=== PATIENT | female | born 1950 | race Caucasian/White ===

== ENCOUNTER 2021-11-28 20:32 | Emergency (ER) | payer SELFPAY ==
[2021-11-28 21:16] LABS: ANION GAP 12.2 mEq/L (7-13); CHLORIDE,CL 102 mmol/L (98-107); SODIUM,NA 133 mmol/L (136-145)
[2021-11-28] MEDS ORDERED: Morphine 2 MG/ML SYRINGE IVPUSH ONE (21:42)
[2021-11-28] MEDS ORDERED: Ondansetron 4 MG/2 ML SDV IVPUSH ONE (21:44)
[2021-11-28] MEDS ORDERED: Ketorolac 30 MG/ML SDV IVPUSH ONE (22:41)
== END 2021-11-29 03:15 | disposition home or self-care (01) ==
LOC: DL.ED 20:32
DX: S80.212A Abrasion, left knee, initial encounter (principal); S80.211A Abrasion, right knee, initial encounter; S40.811A Abrasion of right upper arm, initial encounter; S90.812A Abrasion, left foot, initial encounter; R55 Syncope and collapse; W18.30XA Fall on same level, unspecified, initial encounter
CPT/HCPCS: 36415; 70450; 72125; 73060; 73090; 73501; 73560; 80053; 80307; 81001; 83605; 84484; 85025; 85651; 86140; 93005; 96374; 96375; 99285; J2270; J2405

== ENCOUNTER 2022-10-30 15:42 | Emergency (ER) | payer MEDICAID, MEDICARE ==
[2022-10-30] MEDS ORDERED: Sodium Chloride 0.9% 1,000 ML IV ONE (16:29)
[2022-10-30 16:41] LABS: ANION GAP 15.9 mEq/L (7-13); CHLORIDE,CL 101 mmol/L (98-107); SODIUM,NA 138 mmol/L (136-145)
[2022-10-30 16:44] LABS: ESTIMATED GFR 67 mL/min (>=60)
[2022-10-30 16:53] LABS: AMPHETAMINES,URINE NEGATIVE (NEGATIVE); BARBITURATES,URINE NEGATIVE (NEGATIVE); BENZODIAZEPINE,URINE NEGATIVE (NEGATIVE); MDMA (ECSTASY), URINE NEGATIVE (NEGATIVE); METHADONE,URINE NEGATIVE (NEGATIVE); METHAMPHETAMINES,URINE NEGATIVE (NEGATIVE); OPIATES,URINE NEGATIVE (NEGATIVE); OXYCODONE,URINE NEGATIVE (NEGATIVE); PHENCYCLIDINE,URINE NEGATIVE (NEGATIVE); TCA,URINE NEGATIVE (NEGATIVE)
[2022-10-30 17:11] LABS: CORONAVIRUS COVID-19 NAA NEGATIVE (NEGATIVE); RESPIRATORY SYNCYTIAL VIR NAA NEGATIVE (NEGATIVE)
[2022-10-30] MEDS ORDERED: Lactated Ringers 1,000 ML IV ONE (17:35)
== END 2022-10-30 20:20 | disposition home or self-care (01) ==
LOC: DL.ED 15:42
DX: E86.0 Dehydration (principal); I48.91 Unspecified atrial fibrillation; F10.920 Alcohol use, unspecified with intoxication, uncomplicated; Z79.82 Long term (current) use of aspirin; Z20.822 Contact with and (suspected) exposure to COVID-19
CPT/HCPCS: 0241U; 36415; 70450; 72125; 80053; 80305; 80307; 81001; 82140; 82550; 83605; 83735; 84443; 84484; 85025; 86140; 96360; 96361; 99284; 99285; J7030; J7120

== ENCOUNTER 2023-02-28 22:36 | Emergency (ER) | payer MEDICARE ==
[2023-02-28] MEDS: Sodium Chloride 0.9% 10 ML Syringe FLUSH PRN (22:55)
[2023-02-28 23:15] LABS: BASOPHILS PERCENT AUTO 0.4 % (0.0-1.0); EOSINOPHILS PERCENT AUTO 2.3 % (1.0-3.0); HEMATOCRIT 45.3 % (37.0-47.0); HEMOGLOBIN 15.3 g/dL (12.0-16.0); LYMPHOCYTES PERCENT AUTO 42.9 % (20.5-50.1); MEAN CORPUSCULAR HEMOGLOBIN 33.3 pg (27.0-34.0); MEAN CORPUSCULAR HGB CONC 33.8 g/dL (33.0-35.0); MEAN CORPUSCULAR VOLUME 98.5 fL (80-100); MONOCYTES PERCENT AUTO 8.8 % (2-8); NEUTROPHILS PERCENT AUTO 45.6 % (42.2-75.2); PLATELET COUNT,PLT 236 10^3/uL (150-450); WHITE BLOOD CELL COUNT,WBC 7.7 10^3/uL (5.0-10.0)
[2023-02-28 23:37] LABS: ALBUMIN 3.5 g/dL (3.4-5.0); ANION GAP 14.8 mEq/L (7-13); BLOOD UREA NITROGEN,BUN 21 mg/dL (7-18); BUN/CREATININE RATIO 23.6 (No establ ref range); CALCIUM 8.7 mg/dL (8.5-10.1); CARBON DIOXIDE,CO2 27 mmol/L (21-32); CHLORIDE,CL 100 mmol/L (98-107); CREATININE 0.89 mg/dL (0.55-1.02); GLUCOSE RANDOM 136 mg/dL (70-99); POTASSIUM,K 3.8 mmol/L (3.5-5.1); PROTEIN TOTAL,TP 7.4 g/dL (6.4-8.2); SODIUM,NA 138 mmol/L (136-145)
[2023-02-28 23:38] LABS: A/G RATIO 0.9; ALANINE AMINOTRANSFERASE,ALT 34 U/L (14-59); ALKALINE PHOSPHATASE 98 U/L (46-116); ASPARTATE AMNIOTRANSFERASE,AST 23 U/L (15-37); BILIRUBIN TOTAL 0.4 mg/dL (0.2-1.0); C-REACTIVE PROTEIN 2.3 mg/dL (0.0-0.9); ETHANOL BLOOD MEDICAL 243 mg/dL (0); MAGNESIUM 2.2 mg/dL (1.8-2.4)
[2023-02-28 23:56] LABS: ESTIMATED GFR 69 mL/min (>=60)
[2023-02-28 23:58] LABS: LACTIC ACID 2.8 mmol/L (0.4-2.0)
[2023-03-01] MEDS ORDERED: Sodium Chloride 0.9% 1,000 ML IV ONE
[2023-03-01] MEDS ORDERED: Sodium Chloride 0.9% 10 ML Syringe FLUSH PRN
[2023-03-01] MEDS ORDERED: WATER IV ONE ×2
[2023-03-01] MEDS ORDERED: DEXTROSE 5% IV ONE ×2
[2023-03-01] MEDS ORDERED: VANCOMYCIN IV ONE ×2
[2023-03-01] MEDS ORDERED: cefTRIAXone 2 GM Vial IVPUSH ONE (00:03)
[2023-03-01] MEDS: Sodium Chloride 0.9% 10 ML Syringe FLUSH PRN (00:29)
[2023-03-01 01:12] LABS: LACTIC ACID 2.5 mmol/L (0.4-2.0)
[2023-03-01 01:31] LABS: APPEARANCE,URINE SLIGHTLY CLOUDY (CLEAR); BILIRUBIN,URINE NEGATIVE (NEGATIVE); COLOR,URINE YELLOW (YELLOW); GLUCOSE,URINE NEGATIVE (NEGATIVE); KETONES,URINE NEGATIVE (NEGATIVE); LEUKOCYTE ESTERASE,URINE NEGATIVE (NEGATIVE); NITRITE,URINE NEGATIVE (NEGATIVE); OCCULT BLOOD,URINE SMALL (NEGATIVE); PROTEIN,URINE NEGATIVE (NEGATIVE); UROBILINOGEN,URINE 0.2 mg/dL (0.2-1.0)
[2023-03-01 01:41] LABS: BACTERIA,URINE MODERATE /HPF (0-FEW/HPF); EPITHELIAL CELLS,URINE MODERATE /HPF (NOT SEEN); WBC,URINE 0-5 /HPF (0-5/HPF)
[2023-03-01] MEDS ORDERED: Sodium Chloride 0.9% 1,000 ML IV SCH (01:51)
== END 2023-03-01 03:45 ==
LOC: DL.ED 22:36
DX: G93.41 Metabolic encephalopathy (principal); L03.116 Cellulitis of left lower limb; B87.0 Cutaneous myiasis; F10.120 Alcohol abuse with intoxication, uncomplicated; Y90.8 Blood alcohol level of 240 mg/100 ml or more; I87.8 Other specified disorders of veins; I48.91 Unspecified atrial fibrillation; I50.9 Heart failure, unspecified; Z79.899 Other long term (current) drug therapy; Z79.82 Long term (current) use of aspirin
CPT/HCPCS: 36415; 80053; 80307; 81001; 82550; 83605; 83735; 84145; 85025; 86140; 87040; 96361; 96365; 96366; 96375; 99285; J0696; J3370; J7030; J7060; 99284; J3490

== ENCOUNTER 2023-05-18 14:19 | Emergency (ER) | payer MEDICARE ==
[2023-05-18 17:28] LABS: BASOPHILS PERCENT AUTO 0.2 % (0.0-1.0); EOSINOPHILS PERCENT AUTO 0.6 % (1.0-3.0); HEMATOCRIT 48.5 % (37.0-47.0); HEMOGLOBIN 16.2 g/dL (12.0-16.0); LYMPHOCYTES PERCENT AUTO 22.6 % (20.5-50.1); MEAN CORPUSCULAR HEMOGLOBIN 31.6 pg (27.0-34.0); MEAN CORPUSCULAR HGB CONC 33.4 g/dL (33.0-35.0); MEAN CORPUSCULAR VOLUME 94.7 fL (80-100); MONOCYTES PERCENT AUTO 13.8 % (2-8); NEUTROPHILS PERCENT AUTO 62.8 % (42.2-75.2); PLATELET COUNT,PLT 253 10^3/uL (150-450); RED BLOOD CELL COUNT 5.12 10^6/uL (4.2-5.4); WHITE BLOOD CELL COUNT,WBC 11.8 10^3/uL (5.0-10.0)
[2023-05-18 17:51] LABS: ALANINE AMINOTRANSFERASE,ALT 29 U/L (14-59); ALBUMIN 3.3 g/dL (3.4-5.0); ALKALINE PHOSPHATASE 100 U/L (46-116); ANION GAP 14.7 mEq/L (7-13); ASPARTATE AMNIOTRANSFERASE,AST 30 U/L (15-37); BILIRUBIN TOTAL 2.1 mg/dL (0.2-1.0); BLOOD UREA NITROGEN,BUN 21 mg/dL (7-18); BUN/CREATININE RATIO 24.1 (No establ ref range); CALCIUM 9.3 mg/dL (8.5-10.1); CARBON DIOXIDE,CO2 29 mmol/L (21-32); CHLORIDE,CL 94 mmol/L (98-107); CREATININE 0.87 mg/dL (0.55-1.02); GLUCOSE RANDOM 123 mg/dL (70-99); POTASSIUM,K 4.7 mmol/L (3.5-5.1); PROTEIN TOTAL,TP 8.1 g/dL (6.4-8.2); SODIUM,NA 133 mmol/L (136-145)
[2023-05-18 17:54] LABS: LACTIC ACID 1.7 mmol/L (0.4-2.0)
[2023-05-18 17:55] LABS: A/G RATIO 0.69; ESTIMATED GFR 71 mL/min (>=60)
[2023-05-18 17:56] LABS: C-REACTIVE PROTEIN > 36.0 mg/dL (0.0-0.9)
[2023-05-18] MEDS: Sodium Chloride 0.9% 10 ML Syringe FLUSH PRN ×2 (18:10→19:46)
[2023-05-18] MEDS ORDERED: Sodium Chloride 0.9% 1,000 ML IV ONE (19:43)
== END 2023-05-18 21:10 ==
LOC: DL.ED 14:19
DX: L03.116 Cellulitis of left lower limb (principal); B87.9 Myiasis, unspecified; I48.91 Unspecified atrial fibrillation; Z79.82 Long term (current) use of aspirin
CPT/HCPCS: 36415; 80053; 83605; 84145; 85025; 86140; 87040; 87070; 87077; 87186; 96365; 96366; 99285; 99285-25; J3370; J3490; J7030; J7040

== ENCOUNTER 2024-05-10 15:35 | Inpatient (IN) | payer MEDICARE ==
[2024-05-10] MEDS ORDERED: Sodium Chloride 0.9% 10 ML Syringe FLUSH PRN ×2 (15:52)
[2024-05-10 16:04] LABS: BASOPHILS PERCENT AUTO 0.1 % (0.0-1.0); EOSINOPHILS PERCENT AUTO 0.1 % (1.0-3.0); HEMATOCRIT 38.3 % (37.0-47.0); LYMPHOCYTES PERCENT AUTO 3.8 % (20.5-50.1); MEAN CORPUSCULAR HEMOGLOBIN 30.4 pg (27.0-34.0); MEAN CORPUSCULAR HGB CONC 31.3 g/dL (33.0-35.0); MONOCYTES PERCENT AUTO 3.5 % (2-8); NEUTROPHILS PERCENT AUTO 92.5 % (42.2-75.2); PLATELET COUNT,PLT 242 10^3/uL (150-450); RED BLOOD CELL COUNT 3.95 10^6/uL (4.2-5.4); WHITE BLOOD CELL COUNT,WBC 16.9 10^3/uL (5.0-10.0)
[2024-05-10] MEDS: Metoprolol Tartrate 5 MG/5 ML SDV IVPUSH ONE (16:04)
[2024-05-10 16:13] LABS: INR 1.2 (0.9-1.2); PROTHROMBIN TIME 12.6 SEC (9.0-12.0)
[2024-05-10 16:20] LABS: ALBUMIN 2.3 g/dL (3.4-5.0); ANION GAP 12.3 mEq/L (7-13); BILIRUBIN TOTAL 1.1 mg/dL (0.2-1.0); BUN/CREATININE RATIO 14.9 (No establ ref range); CALCIUM 8.7 mg/dL (8.5-10.1); CREATININE 1.68 mg/dL (0.55-1.02); EST CRCL DRUG DOSING (CG) 26.14 mL/min; POTASSIUM,K 3.3 mmol/L (3.5-5.1)
[2024-05-10 16:34] LABS: A/G RATIO 0.49
[2024-05-10] MEDS: Diltiazem 125 MG in Sodium Chloride 0.9% 100 ML IV SCH ×2 (16:35→21:15)
[2024-05-10] MEDS: Ondansetron 4 MG/2 ML SDV IVPUSH ONE (17:00)
[2024-05-10] MEDS: Metoprolol Succinate 25 MG Tab.ER PO ONE (17:06)
[2024-05-10] MEDS: Diltiazem 25 MG/5 ML SDV IVPUSH ONE (17:23)
[2024-05-10] MEDS: Furosemide 20 MG/2 ML VIAL IVPUSH ONE (18:33)
[2024-05-10] MEDS ORDERED: Docusate Sodium 100 MG Cap PO PRN (20:26)
[2024-05-10] MEDS: Aspirin 325 MG Tab.EC PO SCH (21:54)
[2024-05-11] MEDS: oxyCODONE 5 MG Tab PO PRN (00:05)
[2024-05-11 06:19] LABS: HEMATOCRIT 35.2 % (37.0-47.0); MEAN CORPUSCULAR HEMOGLOBIN 30.6 pg (27.0-34.0); MEAN CORPUSCULAR HGB CONC 31.3 g/dL (33.0-35.0); MEAN CORPUSCULAR VOLUME 97.8 fL (80-100); PLATELET COUNT,PLT 235 10^3/uL (150-450); WHITE BLOOD CELL COUNT,WBC 19.9 10^3/uL (5.0-10.0)
[2024-05-11 06:25] LABS: BASOPHILS PERCENT AUTO 0.1 % (0.0-1.0); EOSINOPHILS PERCENT AUTO 0.3 % (1.0-3.0); LYMPHOCYTES PERCENT AUTO 6.6 % (20.5-50.1); MONOCYTES PERCENT AUTO 4.8 % (2-8); NEUTROPHILS PERCENT AUTO 88.2 % (42.2-75.2)
[2024-05-11 06:34] LABS: ANION GAP 11.6 mEq/L (7-13); CALCIUM 8.3 mg/dL (8.5-10.1); CREATININE 1.5 mg/dL (0.55-1.02); EST CRCL DRUG DOSING (CG) 29.27 mL/min; POTASSIUM,K 3.6 mmol/L (3.5-5.1)
[2024-05-11 06:45] LABS: LYMPHOCYTES PERCENT MAN 5 % (20-50); MONOCYTES PERCENT MAN 4 % (2-8); SEG NEUTROPHILS PERCENT MAN 91 % (42-75)
[2024-05-11] MEDS: Diltiazem 120 MG Cap.CD PO SCH (09:13)
[2024-05-11] MEDS: Ondansetron 4 MG Tab.DIS PO PRN (12:46)
[2024-05-11] MEDS: VANCOmycin 1.5 GM/300 ML 1.5 GM in Premix Bag 1 BAG IV ONE (14:06)
== END 2024-05-11 13:18 | DRG 309 ==
LOC: DL.ED 15:35 → DL.MS 18:35 → UNDOADMIN 18:35 → DL.MS 18:39
PROVIDERS: ADMIT Internal Medicine; ATTEND Internal Medicine
DX: I48.91 Unspecified atrial fibrillation (principal); L03.115 Cellulitis of right lower limb; Z91.199 Patient's noncompliance with other medical treatment and regimen due to unspecified reason; L97.802 Non-pressure chronic ulcer of other part of unspecified lower leg with fat layer exposed; L03.116 Cellulitis of left lower limb; Z66 Do not resuscitate; I50.9 Heart failure, unspecified; M19.90 Unspecified osteoarthritis, unspecified site; I95.9 Hypotension, unspecified; Z88.0 Allergy status to penicillin; Z79.2 Long term (current) use of antibiotics; Z79.82 Long term (current) use of aspirin; Z79.899 Other long term (current) drug therapy; Z79.84 Long term (current) use of oral hypoglycemic drugs; Z90.89 Acquired absence of other organs; Z91.148 Patient's other noncompliance with medication regimen for other reason
CPT/HCPCS: 36415; 51702; 71045; 80053; 83880; 84484; 85025; 85610; 93005; 96365; 96366; 96375; 99285; J1940; J2405; J3490 ×3; 80048; 93010; 99223; 99239; A9270-GY

== ENCOUNTER 2025-05-31 10:28 | Emergency (ER) | payer MEDICARE ==
[2025-05-31] MEDS ORDERED: Sodium Chloride 0.9% 10 ML Syringe FLUSH PRN (11:14)
[2025-05-31 11:30] LABS: PLATELET COUNT,PLT 294 10^3/uL (150-450); RED BLOOD CELL COUNT 4.01 10^6/uL (4.2-5.4); WHITE BLOOD CELL COUNT,WBC 14.7 10^3/uL (5.0-10.0)
[2025-05-31 11:32] LABS: BASOPHILS PERCENT AUTO 0.0 % (0.0-1.0); EOSINOPHILS PERCENT AUTO 0.4 % (1.0-3.0); LYMPHOCYTES PERCENT AUTO 2.9 % (20.5-50.1); MONOCYTES PERCENT AUTO 0.3 % (2-8); NEUTROPHILS PERCENT AUTO 96.4 % (42.2-75.2)
[2025-05-31 11:44] LABS: INR 1.1 (0.9-1.2); PTT,PARTIAL THROMBOPLSTIN TIME 27.2 SEC (22.0-34.0)
[2025-05-31 11:55] LABS: LACTIC ACID 6.6 mmol/L (0.4-2.0)
[2025-05-31 12:00] LABS: ALANINE AMINOTRANSFERASE,ALT 51 U/L (14-59); ASPARTATE AMNIOTRANSFERASE,AST 80 U/L (15-37); BILIRUBIN TOTAL 1.3 mg/dL (0.2-1.0); BLOOD UREA NITROGEN,BUN 61 mg/dL (7-18); CARBON DIOXIDE,CO2 22 mmol/L (21-32); CHLORIDE,CL 97 mmol/L (98-107); CREATININE 2.83 mg/dL (0.55-1.02); GLUCOSE RANDOM 114 mg/dL (70-99); POTASSIUM,K 4.7 mmol/L (3.5-5.1); PROTEIN TOTAL,TP 7.0 g/dL (6.4-8.2); SODIUM,NA 135 mmol/L (136-145); TSH ULTRASENSITIVE 3.03 uIU/mL (0.36-3.74)
[2025-05-31 12:03] LABS: A/G RATIO 0.27; ESTIMATED GFR 17 mL/min (>=60)
[2025-05-31 12:04] LABS: CREATINE KINASE,CK 1187 U/L (16-191); ETHANOL BLOOD MEDICAL < 3 mg/dL (0)
[2025-05-31 12:31] LABS: APPEARANCE,URINE SLIGHTLY CLOUDY (CLEAR); GLUCOSE,URINE NEGATIVE (NEGATIVE); OCCULT BLOOD,URINE MODERATE (NEGATIVE)
[2025-05-31 12:32] LABS: EPITHELIAL CELLS,URINE FEW /HPF (NOT SEEN)
[2025-05-31 12:35] LABS: BAND PERCENT MAN 8 %; EOSINOPHILS PERCENT MAN 1 % (1-3); LYMPHOCYTES % ATYPICAL MANUAL 1 %; LYMPHOCYTES PERCENT MAN 3 % (20-50); SEG NEUTROPHILS PERCENT MAN 87 % (42-75)
[2025-05-31 12:36] LABS: AMPHETAMINES,URINE NEGATIVE (NEGATIVE); BARBITURATES,URINE NEGATIVE (NEGATIVE); MDMA (ECSTASY), URINE NEGATIVE (NEGATIVE); METHAMPHETAMINES,URINE NEGATIVE (NEGATIVE); OPIATES,URINE NEGATIVE (NEGATIVE); OXYCODONE,URINE NEGATIVE (NEGATIVE); PHENCYCLIDINE,URINE NEGATIVE (NEGATIVE); TCA,URINE NEGATIVE (NEGATIVE)
[2025-05-31] MEDS: Norepinephrine Bit/D5W Premix 250 ML IV SCH (13:42)
[2025-05-31] MEDS: Norepinephrine Bit/D5W Premix 250 ML ONE (13:48)
== END 2025-05-31 14:30 ==
LOC: DL.ED 10:28
DX: A41.9 Sepsis, unspecified organism (principal); R65.20 Severe sepsis without septic shock; N17.9 Acute kidney failure, unspecified; I48.92 Unspecified atrial flutter; I48.91 Unspecified atrial fibrillation; I50.9 Heart failure, unspecified; T79.6XXA Traumatic ischemia of muscle, initial encounter; E11.9 Type 2 diabetes mellitus without complications; Z88.0 Allergy status to penicillin; Z79.82 Long term (current) use of aspirin; Z79.899 Other long term (current) drug therapy; Z79.84 Long term (current) use of oral hypoglycemic drugs; Z91.141 Patient's other noncompliance with medication regimen due to financial hardship
CPT/HCPCS: 36415; 70450; 71045; 80053; 80305-QW; 80307; 81001; 82140; 82550; 82947; 83605; 83735; 83880; 84145; 84443; 84484; 85025; 85610; 85730; 86140; 87040; 87077; 87086; 87088; 87186; 93005; 93010; 96361; 96365; 96367; 96368; 99285; 99285-25; A9270-GY; J2543; J3374; J7030; J7050